=== PATIENT | male | born 2000 | race Hispanic/Latino ===

== ENCOUNTER 2020-11-16 18:31 | Emergency (ER) | payer OTHER | END 2020-11-16 21:25 | disposition home or self-care (01) | LOC: EDH 18:31 | DX: M25.511 Pain in right shoulder (principal); M79.642 Pain in left hand; R07.89 Other chest pain; Z72.0 Tobacco use; V49.49XA Driver injured in collision with other motor vehicles in traffic accident, initial encounter; Y93.89 Activity, other specified; Y92.89 Other specified places as the place of occurrence of the external cause; Y99.8 Other external cause status | CPT/HCPCS: 73030; 73130; 96372; 99284; J1885 ==